=== PATIENT | male | born 1945 | race Caucasian/White ===

== ENCOUNTER 2021-09-03 16:51 | Outpatient (CLI) | payer MEDICARE, OTHER, SELFPAY ==
--- NOTE | 2021-09-03 17:05 | XR_ITS ---
WS: [id number] Right foot, 3 views, 09/03/2021 Clinical Data: M79.671 - Pain in right foot Comparison: None. Findings: No fractures or dislocations are seen. No bone destruction or erosion is noted. There is narrowing of the right first MTP joint. No periarticular calcifications or erosions are seen. There is calcificat ion of the manzanares of small vessels in the foot. XR/XR foot RT min 3V* [id number] Impression: 1. 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 2. No evidence of gout.
[2021-09-03 19:36] LABS: Uric Acid 5.2 mg/dL (3.4-7.0)
== END 2021-09-03 16:52 | disposition home or self-care (01) ==
PROVIDERS: Visit Provider Nurse Practitioner Family
DX: M19.071 Primary osteoarthritis, right ankle and foot (principal); M79.671 Pain in right foot
CPT/HCPCS: 73630; 84550

== ENCOUNTER → 2022-05-08 15:32 | Outpatient (BNVA) | payer MEDICARE, OTHER, SELFPAY | PROVIDERS: PCP Nurse Practitioner Family; Visit Provider Nurse Practitioner Family | DX: N40.0 Benign prostatic hyperplasia without lower urinary tract symptoms (principal); Z12.83 Encounter for screening for malignant neoplasm of skin; L72.0 Epidermal cyst; L82.1 Other seborrheic keratosis | CPT/HCPCS: 80053; 84153; 85025 ==

== ENCOUNTER → 2022-05-30 08:03 | Outpatient (BNVA) | payer MEDICARE, OTHER, SELFPAY | PROVIDERS: PCP Nurse Practitioner Family; Visit Provider Urology | DX: R97.20 Elevated prostate specific antigen [PSA] (principal) | CPT/HCPCS: 84153 ==

== ENCOUNTER → 2022-06-06 09:24 | Outpatient (BNVA) | payer MEDICARE, OTHER, SELFPAY | PROVIDERS: PCP Nurse Practitioner Family; Visit Provider Urology | DX: R97.20 Elevated prostate specific antigen [PSA] (principal); Z80.42 Family history of malignant neoplasm of prostate | CPT/HCPCS: G0463; 81003; 99203 ==

== ENCOUNTER → 2022-09-01 09:30 | Outpatient (BNVA) | payer MEDICARE, OTHER, SELFPAY | PROVIDERS: PCP Nurse Practitioner Family; Visit Provider Urology | DX: R97.20 Elevated prostate specific antigen [PSA] (principal) | CPT/HCPCS: 84153 ==

== ENCOUNTER 2024-01-11 02:38 | Emergency (ER) | payer MEDICARE, OTHER, SELFPAY ==
[2024-01-11 02:49] VITALS: BP 182/116; PULSE 100; RESP 18; TEMP 36.4; O2SAT 93; BMI 26.6
--- NOTE | 2024-01-11 02:57 | CTR_ITS ---
PROCEDURE INFORMATION: Exam: CT Abdomen And Pelvis With Contrast Exam date and time: 01/11/2024 3:34 AM Age: 78 years old Clinical indication: Abdominal pain; Localized; Prior surgery; Surgery date: 6+ months; Surgery type: Inguinal hernia; Patient HX: C/O lower pelvic pain; Additional info: Rlq right groin pain TECHNIQUE: Imaging protocol: Computed tomography of the abdomen and pelvis with contrast. Radiation optimization: All CT scans at this facility use at least one of these dose optimization techniques: automated exposure control; mA and/or kV adjustment per patient size (includes targeted exams where dose is matched to clinical indication); or iterative reconstruction. Contrast material: OMNI 350; Contrast volume: 80 ml; Contrast route: INTRAVENOUS (IV); COMPARISON: No relevant prior studies available. RADIATION DOSE METRICS: Total DLP (mGy-cm): 568.58 FINDINGS: Coronary arteries: Coronary artery calcification. Diaphragm: Small sliding-type hiatal hernia. Liver: Subcentimeter cysts in the liver too small to further characterize. Gallbladder and bile ducts: Normal. No calcified stones. No ductal dilation. Pancreas: Normal. No ductal dilation. Spleen: Normal. No splenomegaly. Adrenal glands: Normal. No mass. Kidneys and ureters: 3 mm calcification in the distal left ureter. This produces mild hydronephrosis with perinephric fat stranding. 3 cm exophytic right renal cortical cysts. Stomach and bowel: Colonic diverticulosis. No evidence of diverticulitis. Appendix: No evidence of appendicitis. Intraperitoneal space: Unremarkable. No free air. No significant fluid collection. Vasculature: Atherosclerotic change of the abdominal vasculature. Lymph nodes: Unremarkable. No enlarged lymph nodes. Urinary bladder: Unremarkable as visualized. Reproductive: Unremarkable as visualized. Bones/joints: Unremarkable. No acute fracture. Soft tissues: Unremarkable. CT/CT abdomen pelvis w con* [id number] IMPRESSION: 1. 3 mm calcification in the distal left ureter. This produces mild left hydronephrosis with perinephric fat stranding 2. 3 cm benign-appearing cyst in the right kidney. 3. Subcentimeter cysts in the liver too small to further characterize. 4. Coronary artery calcification. 5. Small sliding-type hiatal hernia. 6. Scattered colonic diverticulosis. No evidence of diverticulitis COMMENTS: Consistent with the [employer]'s Incidental Findings Committee white paper (J Am Annabella Radiol 2018): Any incidental renal lesion less than 1 cm or classified as too small to characterize, or any incidental cystic renal lesion characterized as simple-appearing, is likely benign. No follow-up imaging is recommended for these lesions per consensus recommendations based on imaging criteria.
[2024-01-11] MEDS: sodium chloride 0.9% 1,000 ML 999 ML IV (03:14)
[2024-01-11 03:15] VITALS: RESP 16
[2024-01-11] MEDS: ondansetron 2 mg/ML SDV 2 mL 4 MG IVP (03:15)
[2024-01-11] MEDS: morphine 4 mg/mL SDV 1 mL IVP (03:15)
[2024-01-11 03:22] LABS: Basophils % 0.3 %; Hematocrit 51.3 % (37-53); Lymphocytes # 0.7 10^3/uL (0.8-4.8); Lymphocytes % 5.7 %; Mean Corpuscular HGB Conc 32.9 g/dL (30-55); Mean Corpuscular Hemoglobin 29.5 pg (27-33); Mean Corpuscular Volume 89.5 fl (82-101); Mean Platelet Volume 8.9 fL (7.4-10.4); Monocytes # 0.7 10^3/uL (0.2-0.9); Monocytes % 6.4 %; Neutrophils # 9.87 10^3/uL (1.8-7.7); Neutrophils % 87.2 %; Nucleated Red Blood Cells % 0 %; Platelet Count 298 10^3/cmm (157-399); Red Blood Count 5.73 10^6/uL (3.85-5.65); Red Cell Distribution Width 13.2 % (12.1-15.1); White Blood Count 11.33 10^3/uL (3.29-11.43)
--- NOTE | 2024-01-11 03:24 | ED_ITS ---
HPI - Male Genitourinary 2 General: Chief complaint: Urogenital-Male Stated complaint: Abd pain N/V Time Seen by Provider: 01/11/24 02:57 History of Present Illness: 78-year-old male complains of right lowe r quadrant and right groin pain. He states he has a history of a hernia there, and believes it is busted . He vomited this morning due to increased pain. No trauma to the area that he knows of. No fever. No diarrhea. Associated symptoms: Reports nausea and vomiting; Deny hematuria Review of Systems 2 Const: Denies: fever(s) or chills ENMT: Denies: throat pain Card: Denies: chest pain Resp: Denies: dyspnea GI: Reports: abdominal pain, nausea and vomiting; Denies: hematemesis, diarrhea or rectal pain : Reports: oliguria and genital pain; Denies: flank pain or hematuria Musc: Denies: joint warmth Skin/Breast: Denies: rash PFSH ED 2 PFSH: Family History Mother , at age 89 CAD (coronary artery disease) Cardiac arrest Father , at age 91 Prostate cancer Other Cancer Social History Smoking and tobacco/nicotine status: never used tobacco/nicotine Alcohol intake: never Substance/Drug Use: never Adopted: No Caregiver/support person: No Lives independently: No Household members: spouse Marital status: Current occupational status: employed Sexually active: Yes Do you think of yourself as: Straight/Heterosexual Current gender identity: Male Physical Exam 2 Const: COMMON NORMALS: no acute distress GENERAL APPEARANCE: cooperative; not ill appearing and not frail appearing HENMT: COMMON NORMALS: normocephalic, atraumatic and Normal external nose present HEAD & SCALP: normocephalic and atraumatic FACE & SINUS: normal facial exam and face symmetric NOSE: Normal external nose present Eye: COMMON NORMALS: Equal, round and reactive pupils present and EOMs intact bilaterally PUPIL: Yes Equal, round and reactive pupils present Neck/C-Spine: GENERAL: Yes trachea midline Chest: CHEST: Yes Symmetrical chest wall rise Resp: COMMON NORMALS: normal respiratory effort, No retractions, No use of accessory muscles and clear to auscultation bilaterally AUSCULTATION: clear to auscultation bilaterally Cardio: COMMON NORMALS: regular rate and regular rhythm RATE: regular rate RHYTHM: regular rhythm GI: COMMON NORMALS: Normal to inspection, nondistended, normoactive bowel sounds present : SCROTUM: Yes testes descended bilaterally and No inguinal hernia T PRESTON: Yes testicular swelling (Minimal right), No testicular mass and Yes epididymides normal Extremity: COMMON NORMALS: no pedal edema Neuro: JEFF COMA SCALE: document GCS findings [place] coma scale eye opening: Spontaneous Jeff coma scale verbal response: Orientated [place] coma scale motor response: Obey commands Jeff coma scale total score: 15 S ENSORY EXAM: Yes extremities (intact) Psych: COMMON NORMALS: speech normal SPEECH: Yes normal speech Skin: COMMON NORMALS: no rashes or lesions noted GENERAL SKIN EXAM: no rashes or lesions noted Course 2 Vital Signs: Vital signs: Vital Signs Temperature 97.5 F L 01/11/24 02:49 Pulse Rate 90 01/11/24 05:28 Respiratory Rate 18 01/11/24 05:28 Blood Pressure 147/94 01/11/24 05:28 Pulse Oximetry 95 01/11/24 05:28 Oxygen Delivery Me thod Room Air 01/11/24 03:46 MDM - Male Medical Decision Making Creatinine is 1.4. Hemoglobin is 17. White blood cell count is 11. CT shows a 3 mm calcification in the left distal ureter. There is mild hydronephrosis. No leukocyte Estrace on urinalysis. CRP is 3. He will be allowed discharge. Conservative management for ureterolithiasis. He knows to return for worsening or new symptoms, especially fever. Lab Data 01/11/24 03:13 01/11/24 03:13 Radiology Impressions Abdomen/Pelvis CT 01/11/24 02:57 IMPRESSION: 1. 3 mm calcification in the distal left ureter. This produces mild left hydronephrosis with perinephric fat stranding 2. 3 cm benign-appearing cyst in the right kidney. 3. Subcentimeter cysts in the liver too small to further characterize. 4. Coronary artery calcification. 5. Small sliding-type hiatal hernia. 6. Scattered colonic diverticulosis. No evidence of diverticulitis COMMENTS: Consistent with the [employer]'s Incidental Findings Committee white paper (J Am Annabella Radiol 2018): Any incidental renal lesion less than 1 cm or classified as too small to characterize, or any incidental cystic renal lesion characterized as simple-appearing, is likely benign. No follow-up imaging is recommended for these lesions per consensus recommendations based on imaging criteria. Laboratory Results WBC 11.33 10^3/uL (3.29-11.43) 01/11/24 03:13 RBC 5.73 10^6/uL (3.85-5.65) H 01/11/24 03:13 Hgb 16.90 g/dL (11.27-16.99) 01/11/24 03:13 Hct 51.3 % (37-53) 01/11/24 03:13 MCV 89.5 fl (82-101) 01/11/24 03:13 MCH 29.5 pg (27-33) 01/11/24 03:13 MCHC 32.9 g/dL (30-55) 01/11/24 03:13 RDW 13.2 % (12.1-15.1) 01/11/24 03:13 Plt Count 298 10^3/cmm (157-399) 01/11/24 03:13 MPV 8.9 fL (7.4-10.4) 01/11/24 03:13 Neut % (Auto) 87.2 % 01/11/24 03:13 Lymph % (Auto) 5.7 % 01/11/24 03:13 [place] % (Auto) 6.4 % 01/11/24 03:13 Eos % (Auto) 0.0 % 01/11/24 03:13 Baso % (Auto) 0.3 % 01/11/24 03:13 Neut # (Auto) 9.87 10^3/uL (1.8-7.7) H 01/11/24 03:13 Lymph # (Auto) 0.7 10^3/uL (0.8-4.8) L 01/11/24 03:13 [place] # (Auto) 0.7 10^3/uL (0.2-0.9) 01/11/24 03:13 Eos # (Auto) 0.0 10^3/uL (0.0-0.8) 01/11/24 03:13 Baso # (Auto) 0.0 10^3/uL (0.0-0.1) 01/11/24 03:13 Nucleated RBC % (auto) 0 % 01/11/24 03:13 Nucleated RBCs # 0.0 /100WBC 01/11/24 03:13 Sodium 137 mmol/L (136-145) 01/11/24 03:13 Potassium 4.3 mmol/L (3.5-5.1) 01/11/24 03:13 Chloride 99 mmol/L (98-107) 01/11/24 03:13 Carbon Dioxide 25 mmol/L (22-29) 01/11/24 03:13 Anion Gap 17.3 (5-19) 01/11/24 03:13 BUN 16 mg/dL (8-23) 01/11/24 03:13 Creatinine 1.4 mg/dL (0.7-1.2) H 01/11/24 03:13 GFR Calculation Not Reportable 01/11/24 03:13 Glucose 166 mg/dL (65-115) H 01/11/24 03:13 Calculated Osmolality 289 mOsm/kg (285-295) 01/11/24 03:13 Lactic Acid 2.5 mmol/L (0.5-2.2) H 01/11/24 03:55 Calcium 9.2 mg/dL (8.5-10.5) 01/11/24 03:13 Total Bilirubin 0.4 mg/dL (0.15-1.2) 01/11/24 03:13 AST 17 U/L (0-40) 01/11/24 03:13 ALT 12 U/L (0-41) 01/11/24 03:13 Alkaline Phosphatase 97 U/L (40-130) 01/11/24 03:13 C-Reactive Protein 3.0 mg/L (0.0-4.9) 01/11/24 03:13 Total Protein 6.9 g/dL (6.6-8.7) 01/11/24 03:13 Albumin 4.0 g/dL (3.5-5.2) 01/11/24 03:13 Globulin 2.9 g/dL (1.3-4.6) 01/11/24 03:13 Lipase 41 U/L (13-60) 01/11/24 03:13 Urine Color Yellow (Yellow) 01/11/24 03:55 Urine Appearance Cloudy (CLEAR) A 01/11/24 03:55 Urine pH 8 (5-7) H 01/11/24 03:55 Ur Specific [place] 1.010 (1.005-1.030) 01/11/24 03:55 Urine Protein Neg (Negative) 01/11/24 03:55 Urine Glucose (UA) 1+ (Normal) H 01/11/24 03:55 Urine Ketones 1+ (Negative) H 01/11/24 03:55 Urine Blood 3+ (Negative) H 01/11/24 03:55 Urine Nitrate Negative (Negative) 01/11/24 03:55 Urine Bilirubin Neg (Negative) 01/11/24 03:55 Prot Sulfosalicylic Acd Negative (Negative) 01/11/24 03:55 Urine Urobilinogen Norm mg/dL (Negative) 01/11/24 03:55 Ur Leukocyte Esterase Negative (Negative) 01/11/24 03:55 Urine RBC 25-40 /hpf (0-2) H 01/11/24 03:55 Urine WBC 15-25 /hpf (0-5) H 01/11/24 03:55 Ur Squamous Epith Cells 0-4 /hpf (0-5) H 01/11/24 03:55 Amorphous Sediment Not Reportable 01/11/24 03:55 Urine Bacteria 1+ /hpf (NONE) H 01/11/24 03:55 Urine Mucus 1+ /hpf 01/11/24 03:55 All radiology interpretation(s) finalized by discharge Discharge Plan Discharge Patient Disposition: Home Clinical Impression: Ureterolithiasis Condition: Stable Prescriptions: New Percocet 7.5-325 mg tablet 1 tab PO Q6H PRN (Reason: pain) Qty: 10 0RF ondansetron 4 mg tablet,disintegrating 4 mg PO Q6H PRN (Reason: nausea and vomiting) Qty: 14 0RF Flomax 0.4 mg capsule 0.4 mg PO DAILY Qty: 10 0RF No Action super beta prostate as directed DAILY PRN Discharge Orders: Discharge ED (Routine); Ordered 01/11/24 Ordered By: Dylon Frankel Referrals: Stacy Oconnor, PAINTING [employer]OR [Primary Care Provider] - 4-7 days Patient Instructions: Kidney Stones (ED), Opioid Safety, Pain Management Activity Restrictions/Additional Instructions: Return for fever greater than 100, vomiting liquids or medications, worsening pain despite treatment, other concerning symptoms. See your doctor next week. Strain your urine if possible. Coding Level of Care Code ED Crime Scene Evidence Technician for Basil Eisenberg
[2024-01-11] MEDS: iohexol 350 mg/mL 500 mL Btl (per mL) IV (03:38)
[2024-01-11 03:46] VITALS: BP 149/123; PULSE 100; O2SAT 95
[2024-01-11 04:09] LABS: Alanine Aminotransferase 12 U/L (0-41); Alkaline Phosphatase 97 U/L (40-130); Anion Gap 17.3 (5-19); Aspartate Amino Transferase 17 U/L (0-40); Blood Urea Nitrogen 16 mg/dL (8-23); Calcium 9.2 mg/dL (8.5-10.5); Carbon Dioxide 25 mmol/L (22-29); Chloride 99 mmol/L (98-107); Creatinine Clr Calc Pharmacy 44.0505; Globulin 2.9 g/dL (1.3-4.6); Glucose 166 mg/dL (65-115); Lipase 41 U/L (13-60); Osmolality Calculated 289 mOsm/kg (285-295); Potassium 4.3 mmol/L (3.5-5.1); Sodium 137 mmol/L (136-145); Total Bilirubin 0.4 mg/dL (0.15-1.2); Total Protein 6.9 g/dL (6.6-8.7)
[2024-01-11 04:14] LABS: Add Urine Microscopic? YES; Bilirubin Urine Neg (Negative); Blood Urine 3+ (Negative); Glucose Urine UA 1+ (Normal); Ketones Urine 1+ (Negative); Leukocyte Esterase Urine Negative (Negative); Nitrate Urine Negative (Negative); Protein Urine Neg (Negative); Sulfosalicylic Acid Urine Negative (Negative); Urine Appearance Cloudy (CLEAR); Urine Color Yellow (Yellow); Urobilinogen Urine Norm (Negative); pH Urine 8 (5-7)
[2024-01-11 04:16] LABS: Add Urine Culture? Yes; Bacteria Urine 1+ /hpf; Mucus Urine 1+ /hpf; RBC Urine 25-40 /hpf (0-2); Squamous Epithelial Cell Urine 0-4 /hpf (0-5); WBC Urine 15-25 /hpf (0-5)
[2024-01-11 04:21] LABS: Lactic Sepsis W/Reflex 2.5 mmol/L (0.5-2.2)
[2024-01-11 05:28] VITALS: BP 147/94; PULSE 90; RESP 18; O2SAT 95
[2024-01-11 05:48] LABS: Reflex Lactate Order REFLEX LACTIC ORDERD
== END 2024-01-11 05:28 | disposition home or self-care (01) ==
PROVIDERS: Emergency Provider Emergency Medicine; PCP Nurse Practitioner Family
DX: N13.2 Hydronephrosis with renal and ureteral calculous obstruction (principal)
CPT/HCPCS: 51798; 74177; 80053; 81001; 83605; 83690; 85025; 86140; 87086; 96374; 96375; 99285; J2270; J2405; J7030; Q9967